=== PATIENT | female | born 1990 | race African-American/Black ===

== ENCOUNTER 2023-09-09 13:09 | Inpatient (IN) | payer OTHER ==
[2023-09-09 13:51] VITALS: BMI 22.4
[2023-09-09] MEDS ORDERED: ONDANSETRON *ODT* 4 MG TABLET SL PRN (14:19)
[2023-09-09] MEDS ORDERED: IBUPROFEN 600 MG TABLET (FP) PO PRN (14:19)
[2023-09-09] MEDS ORDERED: P-EPHED 60MG/TRIPROLIDI 2.5MG TABLET PO PRN (14:19)
[2023-09-09] MEDS ORDERED: DICYCLOMINE HCL 10 MG CAPSULE PO PRN (14:19)
[2023-09-09] MEDS ORDERED: MAG HYDROX/AL HYDROX/SIMETH 30 ML UNIT-DOSE CUP PO PRN (14:19)
[2023-09-09] MEDS ORDERED: BENZONATATE 200 MG CAPSULE PO PRN (14:19)
[2023-09-09] MEDS ORDERED: guaiFENesin 600 MG TABLET.ER (FP) PO PRN (14:19)
[2023-09-09] MEDS ORDERED: BENZOCAINE/MENTHOL (CHLORASEPTIC ) LOZENGE MM PRN (14:19)
[2023-09-09] MEDS ORDERED: POLYETHYLENE GLYCOL (HEALTHYLAX) 3350 17 GM PACKET PO PRN (14:19)
[2023-09-09] MEDS ORDERED: LOPERAMIDE HCL 2 MG CAPSULE PO PRN (14:19)
[2023-09-09] MEDS ORDERED: IBUPROFEN 400 MG TABLET (FP) PO PRN (14:19)
[2023-09-09] MEDS ORDERED: ACETAMINOPHEN 325 MG TABLET (FP) PO PRN (14:19)
[2023-09-09] MEDS ORDERED: MAGNESIUM HYDROX 2400MG/30ML ORAL SUSPENSION 30 ML CUP PO PRN (14:19)
[2023-09-09] MEDS ORDERED: METHOCARBAMOL 500 MG TABLET PO PRN (14:19)
[2023-09-09] MEDS ORDERED: BISMUTH SUBSALICYLATE 262 MG/15 ML BTL PO PRN (14:19)
[2023-09-09] MEDS: hydrOXYzine PAMOATE 25 MG CAPSULE (FP) PO PRN (22:22)
[2023-09-09] MEDS: THIAMINE HCL 100 MG TABLET (FP) PO SCH (22:22)
[2023-09-09] MEDS: MELATONIN 5 MG TABLETS PO SCH (22:22)
[2023-09-10 09:53] LABS: HEMATOCRIT 26.2 % (32.4-45.2); HEMOGLOBIN 8.4 GM/dL (10.7-15.3); MCH 31.8 pg (25.7-33.7); MCHC 32.2 g/dl (32.0-36.0); MEAN PLT VOLUME 8.2 fl (7.5-11.1); PLATELET COUNT 169 10^3/uL (134-434); RBC 2.64 M/mm3 (3.60-5.2); WHITE BLOOD COUNT 2.6 K/mm3 (4.0-10.0)
[2023-09-10] MEDS: cloNIDine HCL 0.1 MG TABLET PO SCH ×2 (10:12→22:22)
[2023-09-10] MEDS: PRENATAL VITAMINS W/ FOLIC ACID TABLET (FP) PO SCH (10:12)
[2023-09-10 11:34] LABS: POTASSIUM 3.8 mmol/L (3.5-5.1)
[2023-09-10 12:13] LABS: ALBUMIN 3.2 g/dl (3.4-5.0); BLOOD UREA NITROGEN 13.1 mg/dL (7-18); CALCIUM 8.6 mg/dL (8.5-10.1)
[2023-09-10 12:16] LABS: CREATININE 0.9 mg/dL (0.55-1.3)
[2023-09-10 12:18] LABS: BILIRUBIN,TOTAL 0.8 mg/dL (0.2-1)
[2023-09-10] MEDS ORDERED: cloNIDine HCL 0.1 MG TABLET PO ONE (13:12)
[2023-09-10] MEDS: hydrOXYzine PAMOATE 25 MG CAPSULE (FP) PO PRN (22:22)
[2023-09-10] MEDS: MELATONIN 5 MG TABLETS PO SCH (22:22)
[2023-09-10] MEDS: THIAMINE HCL 100 MG TABLET (FP) PO SCH (22:22)
[2023-09-11] MEDS: hydrOXYzine PAMOATE 25 MG CAPSULE (FP) PO PRN (05:54)
[2023-09-11] MEDS ORDERED: cloNIDine HCL 0.1 MG TABLET PO ONE (07:00)
[2023-09-11] MEDS: PRENATAL VITAMINS W/ FOLIC ACID TABLET (FP) PO SCH (10:34)
[2023-09-11] MEDS: cloNIDine HCL 0.1 MG TABLET PO SCH (10:34)
[2023-09-11 11:07] VITALS: BP 142/106; PULSE 94; RESP 18; TEMP 98.2
== END 2023-09-11 11:58 | disposition home or self-care (01) | DRG 775 ==
LOC: YASAS 13:09 → Y3N 14:50 → Y6N 14:52
PROVIDERS: ADMIT Allergy & Immunology; ATTEND Surgery
PROC: HZ2ZZZZ Detoxification Services for Substance Abuse Treatment (ICD-10-PCS; principal; 2023-09-09)
DX: F10.20 Alcohol dependence, uncomplicated (principal); U07.1 COVID-19; I10 Essential (primary) hypertension; Z91.148 Patient's other noncompliance with medication regimen for other reason
CPT/HCPCS: 36415; 80053; 81025; 85027; 86780; 87635; 87811